=== PATIENT | male | born 1985 ===

== ENCOUNTER → 2017-03-28 | Outpatient (CLI) | payer OTHER ==
--- NOTE | 2017-03-28 14:05 | DIAGNOSTIC IMAGING REPORT ---
RIGHT ANKLE 3 VIEWS CLINICAL HISTORY: Right ankle pain and fracture. FINDINGS: 3 views of the right ankle are obtained. No prior studies are available for comparison at the time of dictation. The skeletal structures are well mineralized. There is a comminuted and minimally distracted spiral fracture through the distal fibula. No additional fracture is seen. The ankle mortise is in near-anatomic alignment. There is an associated joint effusion, and soft tissue edema is present around the ankle. IMPRESSION: There is a comminuted and minimally distracted spiral fracture of the distal fibula with associated joint effusion and soft tissue edema. Electronically signed by: Carlos Aquino M.D. 03/28/2017 2:04 PM Dictated Date/Time: 03/28/2017 2:02 PM
--- NOTE | 2017-03-28 14:41 | DIAGNOSTIC IMAGING REPORT ---
R HAND MIN 3 VIEWS CLINICAL HISTORY: 32 years-old Male presenting with RIGHT HAND PAIN S/P INJURY. TECHNIQUE: Frontal, oblique, and lateral views the right hand were obtained. COMPARISON: None. FINDINGS: Diffuse soft tissue swelling of the hand. No acute fracture or malalignment. No significant degenerative change. IMPRESSION: No acute osseous injury of the right hand. Diffuse soft tissue swelling. Electronically signed by: Jefferson Maldonado M.D. 03/28/2017 2:40 PM Dictated Date/Time: 03/28/2017 2:39 PM
--- NOTE | 2017-03-28 15:12 | DIAGNOSTIC IMAGING REPORT ---
RIGHT ANKLE ONE VIEW HISTORY: RIGHT DISTAL FIBULA FX COMPARISON: None. FINDINGS: There is again noted an oblique fracture within the distal right fibula. This demonstrates up to 2 mm of lateral displacement. No dislocation. Diffuse soft tissue swelling. No radiopaque foreign bodies. IMPRESSION: Minimally displaced fracture within the distal right fibula. Electronically signed by: Otis Almeida M.D. 03/28/2017 3:11 PM Dictated Date/Time: 03/28/2017 3:10 PM
--- NOTE | 2017-03-28 15:16 | DIAGNOSTIC IMAGING REPORT ---
RIGHT FOOT 3 VIEWS HISTORY: Right foot pain. RIGHT DISTAL FIBULA FX COMPARISON: None. FINDINGS: No fracture or dislocation within the right foot. The distal right fibular fracture is again noted. Dorsal soft tissue swelling. No radiopaque foreign bodies. IMPRESSION: 1. No acute fracture or dislocation within the right foot. 2. The distal right fibular fracture is again noted Electronically signed by: Otis Almeida M.D. 03/28/2017 3:14 PM Dictated Date/Time: 03/28/2017 3:11 PM
== END | disposition home or self-care (01) ==
LOC: C.RDSM 14:27
PROVIDERS: ATTEND Physician Assistant
DX: S82.821A Torus fracture of lower end of right fibula, initial encounter for closed fracture (principal); X58.XXXA Exposure to other specified factors, initial encounter; M25.571 Pain in right ankle and joints of right foot; S69.91XA Unspecified injury of right wrist, hand and finger(s), initial encounter

== ENCOUNTER → 2017-03-28 | Outpatient (CLI) | payer OTHER | END | disposition home or self-care (01) | LOC: C.LABSPEC 16:05 | PROVIDERS: ATTEND Physician Assistant | DX: S69.91XA Unspecified injury of right wrist, hand and finger(s), initial encounter (principal); X58.XXXA Exposure to other specified factors, initial encounter ==

== ENCOUNTER → 2017-04-09 | Outpatient (CLI) | payer OTHER | END | disposition home or self-care (01) | LOC: C.RDSM 12:10 | PROVIDERS: ATTEND Physical Medicine & Rehabilitation Sports Medicine | DX: S82.821A Torus fracture of lower end of right fibula, initial encounter for closed fracture (principal); X58.XXXA Exposure to other specified factors, initial encounter ==